=== PATIENT | female | born 1990 | race Caucasian/White ===

== ENCOUNTER → 2018-03-03 | Outpatient (CLI) | payer OTHER ==
--- NOTE | 2018-03-03 13:33 | US ---
EXAMINATION TYPE: US pelvis complete transvag DATE OF EXAM: 03/03/2018 COMPARISON: NONE CLINICAL HISTORY: R10.2 Pelvic pain. Pelvic pain for 1 year and irregular menses. 4 prior c-sections TECHNIQUE: Transvaginal (TV) and Transabdominal (TA) . Transabdominal sonographic images of the pel vis were acquired. Transvaginal sonographic images were medically necessary to better assess the fol lowing anatomy: endometrium Date of LMP: 02/27/18 EXAM MEASUREMENTS: Uterus: 11.4 x 3.7 x 5.6 cm Endometrial Stripe: 0.5 cm Right Ovary: 2.8 x 1.5 x 1.6 cm Left Ovary: 2.6 x 1.8 x 2.4 cm 1. Uterus: Anteverted 2. Endometrium: complex fluid collection within 3. Right Ovary: follicles noted 4. Left Ovary: follicles noted 5. Bilateral Adnexa: wnl 6. Posterior cul-de-sac: wnl IMPRESSION: Endometrial fluid is present. Consider follow-up.
== END | disposition home or self-care (01) ==
LOC: RADUSWWP 10:31
PROVIDERS: ATTEND Obstetrics & Gynecology
DX: R10.2 Pelvic and perineal pain (principal)
CPT/HCPCS: 76830; 76856

== ENCOUNTER → 2018-04-08 | Outpatient (CLI) | payer OTHER ==
--- NOTE | 2018-04-08 10:52 | US ---
EXAMINATION TYPE: US pelvis complete transvag DATE OF EXAM: 04/08/2018 COMPARISON: US CLINICAL HISTORY: N85.9 Endometrial Fluid. TECHNIQUE: Transvaginal (TV) and Transabdominal (TA) . Transabdominal sonographic images of the pel vis were acquired. Transvaginal sonographic images were medically necessary to better assess the fol lowing anatomy: Date of LMP: 03/23/18 EXAM MEASUREMENTS: Uterus: 11.0 x 4.4 x 5.9 cm Endometrial Stripe: 0.6 cm , 2mm of fluid centrally Right Ovary: 3.0 x 1.7 x 2.2 cm Left Ovary: 2.6 x 1.8 x 1.9 cm Patient unable to completely fill or empty her bladder making exam technically difficult. 1. Uterus: Anteverted. A questionable lesion is seen of the anterior mid body of the uterus measurin g 1.6 x 1.5 x 1.7cm 2. Endometrium: there does appear to be a small amount of slightly complex fluid in endometrium, lik anna blood products. 3. Right Ovary: wnl 4. Left Ovary: wnl 5. Bilateral Adnexa: wnl 6. Posterior cul-de-sac: wnl IMPRESSION: 1. Improved degree of endometrial fluid in comparison the prior of 03/03/2018, now trace measuring 2 m m in thickness 2. Heterogeneity of the anterior myometrium within the mid body of the uterus raises suspicion for a 1.7 cm exophytic uterine leiomyoma.
== END | disposition home or self-care (01) ==
LOC: RADUSWWP 09:04
PROVIDERS: ATTEND Obstetrics & Gynecology
DX: D25.9 Leiomyoma of uterus, unspecified (principal)
CPT/HCPCS: 76830; 76856

== ENCOUNTER 2018-05-12 06:37 | Day surgery (SDC) | payer OTHER ==
[2018-05-08 17:24] VITALS: BMI 29.4
[~2018-05-12 06:37] MED LIST: Pre Op ABX Message 1 EACH MISC MISCELLANE ONE
[2018-05-12] MEDS ORDERED: ONDANSETRON 4 MG/2 ML VIAL IVP ONE (06:52)
[2018-05-12] MEDS ORDERED: DEXAMETHASONE SOD PHOSPHATE 10 MG/ML 1 ML VIAL IV ONE (06:52)
[2018-05-12] MEDS ORDERED: LIDOCAINE 1% 20 ML VIAL (10MG/ML) FOR IV START INTRADERMA PRN (06:52)
[2018-05-12] MEDS ORDERED: fentaNYL (PF) 50 MCG/ML 2 ML AMP IV PRN (06:52)
[2018-05-12] MEDS ORDERED: MIDAZOLAM (PF) 2 MG/2 ML VIAL IV PRN (06:52)
[2018-05-12] MEDS: LACTATED RINGERS 1,000 ML IV SCH ×2 (07:32→07:45)
[2018-05-12] MEDS ORDERED: SCOPOLAMINE 1.5MG/72HR PATCH TRANSDERM ONE (07:41)
[2018-05-12] MEDS ORDERED: KETOROLAC 30 MG/ML 1 ML VIAL ONE (07:43)
[2018-05-12] MEDS ORDERED: PROPOFOL 10 MG/ML 20 ML VIAL IV ONE (07:43)
[2018-05-12] MEDS ORDERED: MIDAZOLAM 2 MG/2 ML VIAL ONE (07:43)
[2018-05-12] MEDS ORDERED: LIDOCAINE 1% INJ 10MG/ML (20 ML MDV) ONE (07:43)
[2018-05-12] MEDS ORDERED: fentaNYL (PF) 50 MCG/ML 2 ML AMP ONE (07:43)
[2018-05-12 08:31] VITALS: TEMP 97.3
[2018-05-12 08:32] VITALS: RESP 16
--- NOTE | 2018-05-12 08:41 | P.OP ---
Date of Procedure: 05/12/18 Preoperative Diagnosis: Menorrhagia complex fluid collection in the endometrium Postoperative Diagnosis: Same Procedure(s) Performed: D&C with hysteroscopy Anesthesia: RHODA Surgeon: Stuart Grajeda Estimated Blood Loss (ml): 5 Pathology: other (Uterine curettings) Condition: stable Disposition: same day Operative Findings: Tissue pathology pending Description of Procedure: Patient was taken to the operating suite where general anesthetic was found be adequate. She was prepped and draped in the normal sterile fashion placed in the dorsal lithotomy position. Initially a weighted speculum was inserted the vagina and the anterior lip of the cervix was grasped with an Allis clamp. Cervix was then dilated camera was inserted. No fluid collection was visualized. Sharp curettings of endometrium were obtained all tissues collected placed on Telfa sent to pathology for evaluation. Once this was accomplished all incidents removed, sponge, lap, needle counts were all correct 2. Patient was then taken to the recovery room in stable and satisfactory condition. Plan - Discharge Summary Discharge Rx Participant: Yes New Discharge Prescriptions: No Action Ibuprofen [Motrin Ib] 200 - 400 mg PO Q6H PRN PRN Reason: Pain Acetaminophen [Tylenol] 325 mg PO Q4H Discharge Medication List Ibuprofen [Motrin Ib] 200 - 400 mg PO Q6H PRN 05/08/18 [History] Acetaminophen [Tylenol] 325 mg PO Q4H 05/12/18 [History]
[2018-05-12] MEDS ORDERED: LACTATED RINGERS 1,000 ML IV ONE (08:46)
[2018-05-12 10:34] VITALS: BP 97/61; PULSE 72
--- NOTE | 2018-05-24 12:43 | P.HPOB ---
History of Present Illness H&P Date: 05/24/18 Chief Complaint: Menorrhagia Patient is a 27-year-old female with menorrhagia and questionable fluid collection in the endometrium on ultrasound. Symptoms have been going on for several months and she is beginning to get very concerned about the symptoms. She is scheduled for D&C with hysteroscopy to rule out other pathology. Risks/ benefits/alternatives to this procedure were discussed with the patient in detail and all questions were answered for her prior to proceeding to the operating room. Past Medical History Additional Past Medical History / Comment(s): RT ANKLE PAIN OCC D/T OLD INJURY. PELVIC PAIN ON/OFF, FLUID BEHIND UTERUS, LONG MENSES. RT VARICOSE VEIN. History of Any Multi-Drug Resistant Organisms: None Reported Past Surgical History: Adenoidectomy, Section, Ear Surgery Additional Past Surgical History / Comment(s): C-S X4. BMT. Past Anesthesia/Blood Transfusion Reactions: No Reported Reaction, Motion Sickness Smoking Status: Former smoker - Past Family History Mother Family Medical History: Cancer Additional Family Medical History / Comment(s): UTERINE Medications and Allergies Home Medications Medication Instructions Recorded Confirmed Type Ibuprofen [Motrin Ib] 200 - 400 mg PO Q6H PRN 05/08/18 05/12/18 History Acetaminophen [Tylenol] 325 mg PO Q4H 05/12/18 05/12/18 History Ibuprofen [Motrin] 600 mg PO Q6HR PRN #30 tab 05/12/18 Rx Allergies Allergy/AdvReac Type Severity Reaction Status Date / Time zolpidem [From Ambien] AdvReac "BLACK OUT" Verified 05/12/18 07:06 Exam Osteopathic Statement: *. No significant issues noted on an osteopathic structural exam other than those noted in the History and Physical/Consult. - OBG Physical Exam Breast: both: normal (no masses) Abdomen: bowel sounds normal, no diffuse tenderness, no bruit present, no guarding noted, no hepatomegaly, no splenomegaly, no mass Vulva: both: normal Vagina: normal moisture, no discharge Cervix: no lesion, no discharge Uterus: normal size, normal contour Adnexa: both: normal Anus/Rectum: normal perianal skin, no rectal mass, no hemorrhoids, heme negative
== END 2018-05-12 10:58 | disposition home or self-care (01) ==
LOC: OR 06:37
PROVIDERS: ATTEND Obstetrics & Gynecology
DX: N92.0 Excessive and frequent menstruation with regular cycle (principal); Z87.891 Personal history of nicotine dependence; Z79.899 Other long term (current) drug therapy; Z88.8 Allergy status to other drugs, medicaments and biological substances; Z80.49 Family history of malignant neoplasm of other genital organs
CPT/HCPCS: 58558; 88305; J2250; J1100; J2405; J2001; J3010; J1885; J2704

== ENCOUNTER → 2018-06-11 | Outpatient (CLI) | payer OTHER ==
--- NOTE | 2018-06-11 09:59 | US ---
EXAMINATION TYPE: US abdomen complete DATE OF EXAM: 06/11/2018 COMPARISON: NONE CLINICAL HISTORY: R10.9 abdominal pain. EXAM MEASUREMENTS: Liver Length: 13.0 cm Gallbladder Wall: 0.2 cm CBD: 0.2 cm Spleen: 9.7 cm Right Kidney: 10.7 x 4.5 x 3.2 cm Left Kidney: 11.1 x 4.2 x 3.8 cm Pancreas: wnl Liver: wnl Gallbladder: wnl Evidence for sonographic Llanos's sign: No CBD: wnl Spleen: wnl Right Kidney: wnl Left Kidney: wnl Upper IVC: wnl Abd Aorta: wnl The visualized liver is homogenous. The intrahepatic portion of the IVC and visualized abdominal aor ta are within normal limits. There is no evidence of cholelithiasis. Common bile duct is unremarkab le. The visualized portions of the pancreas are homogenous. The spleen is unremarkable. Kidneys ar e symmetric and free of hydronephrosis. No renal lesions are seen. IMPRESSION: No suspicious finding identified to account for patient's symptoms of pain.
== END ==
LOC: RADUSWWP 09:10
PROVIDERS: ATTEND Internal Medicine Geriatric Medicine
DX: R10.9 Unspecified abdominal pain (principal)
CPT/HCPCS: 76700

== ENCOUNTER → 2018-07-04 | Outpatient (CLI) | payer OTHER ==
--- NOTE | 2018-07-04 15:26 | NM ---
EXAMINATION TYPE: NM hepatobiliary w EF DATE OF EXAM: 07/04/2018 COMPARISON: NONE INDICATION: Abdomen pain TECHNIQUE: After the intravenous administration of 5.14 mCi Tc 99m Mebrofenin hepatobiliary scintigra phy is performed. Images were obtained immediately post injection. FINDINGS: There is prompt uptake and excretion of radiotracer by the liver. Extrahepatic ducts are identified at 8 minutes. The gallbladder is visualized within 10 minutes. Small bowel activity is noted within 12 minutes. At one hour 8 ounces of oral ensure plus is given to mimic CCK and gallbladder ejection fraction is c alculated at 58 %, which is in the normal range. (Normal >35% and <80%.). IMPRESSION: 1. Normal hepatobiliary scan
== END | disposition home or self-care (01) ==
LOC: RADNMMAIN 08:57
PROVIDERS: ATTEND Nurse Practitioner Family
DX: R10.9 Unspecified abdominal pain (principal)
CPT/HCPCS: 78226; A9537

== ENCOUNTER → 2019-03-16 | Outpatient (CLI) | payer OTHER ==
--- NOTE | 2019-03-16 12:09 | US ---
EXAMINATION TYPE: US pelvic complete DATE OF EXAM: 03/16/2019 COMPARISON: 04/08/2018 CLINICAL HISTORY: R10.2 PELVIC PAIN. TECHNIQUE: Transabdominal (TA). Date of LMP: 03/06/19 EXAM MEASUREMENTS: Uterus: 11.6 x 3.8 x 5.1 cm Endometrial Stripe: 0.3 cm Right Ovary: 3.3 x 2.3 x 1.2 cm Left Ovary: 2.4 x 1.9 x 1.8 cm 1. Uterus: Anteverted, probable fibroid again visualized measuring 2.2 x 1.9 x 2.1cm. This is locate d in the anterior body and may be submucosal or intramural and exophytic. 2. Endometrium: wnl 3. Right Ovary: wnl 4. Left Ovary: wnl 5. Bilateral Adnexa: wnl 6. Posterior cul-de-sac: wnl IMPRESSION: Redemonstration of probable submucosal or intramural and exophytic anterior uterine mid b violetta leiomyoma.
== END | disposition home or self-care (01) ==
LOC: RADUSWWP 10:03
PROVIDERS: ATTEND Obstetrics & Gynecology
DX: R10.2 Pelvic and perineal pain (principal)
CPT/HCPCS: 76856

== ENCOUNTER → 2019-04-06 | Outpatient (CLI) | payer OTHER ==
--- NOTE | 2019-04-06 09:53 | US ---
EXAMINATION TYPE: US abdomen complete DATE OF EXAM: 04/06/2019 COMPARISON: Abdominal ultrasound dated 06/11/2018 CLINICAL HISTORY: R10.84 Generalized Abdominal pain. ongoing abd pain for years EXAM MEASUREMENTS: Liver Length: 14.6 cm Gallbladder Wall: 0.3 cm CBD: 0.4 cm Spleen: 10.0 cm Right Kidney: 10.4 x 4.6 x 3.6 cm Left Kidney: 11.6 x 4.5 x 5.3 cm Pancreas: wnl Liver: wnl Gallbladder: wnl Evidence for sonographic Llanos's sign: no CBD: wnl Spleen: wnl Right Kidney: wnl Left Kidney: wnl Upper IVC: wnl Abd Aorta: wnl The liver is homogenous. The intrahepatic portion of the IVC and proximal abdominal aorta are within normal limits. There is no evidence of cholelithiasis. Common bile duct is unremarkable. The visu alized portions of the pancreas are homogenous. The spleen is unremarkable. Kidneys are symmetric a nd free of hydronephrosis. No renal lesions are seen. IMPRESSION: Unremarkable abdominal ultrasound. No sonographic evidence of cholelithiasis nor acute ch olecystitis. No hydronephrosis or nephrolithiasis.
== END | disposition home or self-care (01) ==
LOC: RADUSWWP 08:40
PROVIDERS: ATTEND Obstetrics & Gynecology
DX: R10.84 Generalized abdominal pain (principal); Z88.8 Allergy status to other drugs, medicaments and biological substances
CPT/HCPCS: 76700

== ENCOUNTER → 2020-06-12 | Outpatient (CLI) | payer OTHER ==
--- NOTE | 2020-06-12 09:57 | MM ---
Reason for exam: clinical finding. Baseline mammogram. History: Family history of breast cancer in mother and breast cancer in maternal grandmother. Taking hormonal contraceptives for 1 year beginning at age 28. Indicated problem(s): lump or thickening in the right breast. Physical Findings: Nurse did not find any significant physical abnormalities on exam. MG 3D Diag Mammo W/Cad KEY Bilateral CC and MLO view(s) were taken. The breast tissue is heterogeneously dense. This may lower the sensitivity of mammography. Central asymmetric density right CC view disperses on spot 3D. Punctate regional calcifications posteriorly on the left are typically benign. These results were verbally communicated with the patient and result sheet given to the patient on 06/12/20. ASSESSMENT: Incomplete: need additional imaging evaluation, BI-RAD 0 RECOMMENDATION: Ultrasound of the right breast.
--- NOTE | 2020-06-12 10:00 | USB ---
Reason for exam: additional evaluation requested from abnormal screening. History: Family history of breast cancer in mother and breast cancer in maternal grandmother. Taking hormonal contraceptives for 1 year beginning at age 28. US Breast Limited RT Right limited breast ultrasound including focal area of concern, retroareolar and axilla demonstrates no cystic or solid lesion seen. 9-12 o'clock scanned. These results were verbally communicated with the patient and result sheet given to the patient on 06/12/20. ASSESSMENT: Benign, BI-RAD 2 RECOMMENDATION: Routine screening mammogram of both breasts at age 38. (unless clinical indication to start sooner) Manage on a clinical basis with regard to any suspicious palpable and breast pain.
== END ==
LOC: RADMAMWWP 06:59
PROVIDERS: ATTEND Internal Medicine
DX: R92.1 Mammographic calcification found on diagnostic imaging of breast (principal); R92.2 Inconclusive mammogram; Z80.3 Family history of malignant neoplasm of breast
CPT/HCPCS: 77066; 76642; G0279; 77062

== ENCOUNTER 2020-10-30 15:20 | Emergency (ER) | payer OTHER ==
[2020-10-30] MEDS ORDERED: methylPREDNISolone SOD SUCCI 125 MG/2 ML VIAL IM ONE (16:38)
[2020-10-30] MEDS ORDERED: diphenhydrAMINE 50 MG CAP PO STA (16:38)
--- NOTE | 2020-10-30 16:45 | ED ---
Skin/Abscess/FB HPI - General Chief complaint: Skin/Abscess/Foreign Body Stated complaint: Rash Time Seen by Provider: 10/30/20 16:17 Source: patient Mode of arrival: ambulatory Limitations: no limitations - History of Present Illness Initial comments: Patient is a 29-year-old female presenting to the emergency Department with complaints of a rash on her bilateral legs that started yesterday. She noticed small hives appearing on her leg yesterday and then has steadily progressed and today. She has hives covering the anterior and posterior aspect of her bilateral upper legs as well as a few spots on her torso and back. She is unsure of what caused this, she denies any new soaps or detergents. She denies any new medications. She denies any chest pain or shortness of breath, no trouble breathing, no swelling anywhere. She did not take any medicines for this. She has no further complaints. Her vitals are stable upon arrival. - Related Data Home Medications Medication Instructions Recorded Confirmed Ibuprofen [Motrin Ib] 200 - 400 mg PO Q6H PRN 05/08/18 05/12/18 Acetaminophen [Tylenol] 325 mg PO Q4H 05/12/18 05/12/18 Previous Rx's Medication Instructions Recorded Ibuprofen [Motrin] 600 mg PO Q6HR PRN #30 tab 05/12/18 predniSONE 50 mg PO DAILY #5 tab 10/30/20 Allergies Allergy/AdvReac Type Severity Reaction Status Date / Time zolpidem [From Ambien] AdvReac "BLACK OUT" Verified 10/30/20 15:39 Review of Systems ROS Statement: Those systems with pertinent positive or pertinent negative responses have been documented in the HPI. ROS Other: All systems not noted in ROS Statement are negative. Past Medical History Additional Past Medical History / Comment(s): RT ANKLE PAIN OCC D/T OLD INJURY. PELVIC PAIN ON/OFF, FLUID BEHIND UTERUS, LONG MENSES. RT VARICOSE VEIN. History of Any Multi-Drug Resistant Organisms: None Reported Past Surgical History: Adenoidectomy, Section, Ear Surgery Additional Past Surgical History / Comment(s): C-S X4. BMT. Past Anesthesia/Blood Transfusion Reactions: No Reported Reaction, Motion Sickness Past Psychological History: Anxiety, Depression Smoking Status: Never smoker Past Alcohol Use History: Occasional Past Drug Use History: None Reported - Past Family History Mother Family Medical History: Cancer Additional Family Medical History / Comment(s): UTERINE General Exam - General Exam Comments Initial Comments: GENERAL: Patient is well-developed and well-nourished. Patient is nontoxic and in no acute distress. HEAD: Atraumatic, normocephalic. EYES: Pupils equal round and reactive to light, extraocular movements intact, sclera anicteric, conjunctiva are normal. Eyelids were unremarkable. ENT: Nares patent, oropharynx clear without exudates. Moist mucous membranes. NECK: Normal range of motion, supple without lymphadenopathy or JVD. LUNGS: Unlabored respirations. Breath sounds clear to auscultation bilaterally and equal. No wheezes rales or rhonchi. HEART: Regular rate and rhythm without murmurs, rubs or gallops. ABDOMEN: Soft, nontender, normoactive bowel sounds. MUSCULOSKELETAL: Normal extremities with adequate strength and normal range of motion, no pitting or edema. No clubbing or cyanosis. NEUROLOGICAL: Patient is alert and oriented x 3. SKIN: Warm, Dry, normal turgor. Patient has hives on her anterior and posterior bilateral upper thighs as well as a few spots on her abdomen and lower back. This is pruritic in nature, consistent with an ALLERGIC rash. Limitations: no limitations Course Vital Signs 10/30/20 15:39 Temperature 98.1 F Pulse Rate 102 H Respiratory 16 Rate Blood Pressure 124/84 O2 Sat by Pulse 96 Oximetry Medical Decision Making - Medical Decision Making Patient is a 29-year-old female here with an ALLERGIC rash on her bilateral upper legs, torso. No difficulty in breathing, her vitals are stable. She will be given a shot of steroids here today, she has a half hour drive home so I gave her a tablet of Benadryl take when she gets home. She will continue on steroids starting tomorrow. She can follow up with her PCP. Return parameters were discussed with her and she verbalized understanding. Case discussed with Dr. Mitchell. Disposition Clinical Impression: Rash due to allergy, Hives Disposition: HOME SELF-CARE Condition: Stable Instructions (If sedation given, give patient instructions): Urticaria (ED) Additional Instructions: Please return to the Emergency Department if symptoms worsen or any other concerns. Take oral steroids as prescribed, starting tomorrow. May take up to 50 mg of Benadryl every 8 hours for itching. Follow-up with your family doctor as needed. Prescriptions: predniSONE 50 mg PO DAILY #5 tab Is patient prescribed a controlled substance at d/c from ED?: No Referrals: Galina Collins MD [Primary Care Provider] - 1-2 days Time of Disposition: 16:45
[2020-10-30 17:02] VITALS: BP 112/79; PULSE 84; RESP 18; TEMP 97.9
== END 2020-10-30 16:59 | disposition home or self-care (01) ==
LOC: EC 15:20
DX: L50.0 Allergic urticaria (principal); Z79.1 Long term (current) use of non-steroidal anti-inflammatories (NSAID); Z79.52 Long term (current) use of systemic steroids; Z88.8 Allergy status to other drugs, medicaments and biological substances
CPT/HCPCS: 96372; 99282; J2930

== ENCOUNTER 2021-01-23 13:11 | Emergency (ER) | payer OTHER ==
[2021-01-23 13:27] VITALS: BP 109/73; PULSE 71; RESP 16; TEMP 98.6
--- NOTE | 2021-01-23 14:25 | ED ---
URI HPI - General Chief Complaint: Upper Respiratory Infection Stated Complaint: sorethroat, cough, headache Time Seen by Provider: 01/23/21 13:54 Source: patient, RN notes reviewed Mode of arrival: ambulatory Limitations: no limitations - History of Present Illness Initial Comments: This a 30-year-old female presents emergency Department with chief complaint of cough congestion sore throat. Patient states symptoms started last 4 days. Patient states her daughter has some her symptoms. No reported fever. Mild headache no chest pain no nausea vomiting diarrhea constipation no sick contacts. Patient has had prior COVID-19 infection. - Related Data Home Medications Medication Instructions Recorded Confirmed Ibuprofen [Motrin Ib] 200 - 400 mg PO Q6H PRN 05/08/18 05/12/18 Acetaminophen [Tylenol] 325 mg PO Q4H 05/12/18 05/12/18 Previous Rx's Medication Instructions Recorded Ibuprofen [Motrin] 600 mg PO Q6HR PRN #30 tab 05/12/18 predniSONE 50 mg PO DAILY #5 tab 10/30/20 Allergies Allergy/AdvReac Type Severity Reaction Status Date / Time zolpidem [From Ambien] AdvReac "BLACK OUT" Verified 10/30/20 15:39 Review of Systems ROS Statement: Those systems with pertinent positive or pertinent negative responses have been documented in the HPI. ROS Other: All systems not noted in ROS Statement are negative. Past Medical History Additional Past Medical History / Comment(s): RT ANKLE PAIN OCC D/T OLD INJURY. PELVIC PAIN ON/OFF, FLUID BEHIND UTERUS, LONG MENSES. RT VARICOSE VEIN. History of Any Multi-Drug Resistant Organisms: None Reported Past Surgical History: Adenoidectomy, Section, Ear Surgery Additional Past Surgical History / Comment(s): C-S X4. BMT. Past Anesthesia/Blood Transfusion Reactions: No Reported Reaction, Motion Sickness Past Psychological History: Anxiety, Depression Smoking Status: Never smoker Past Alcohol Use History: Occasional Past Drug Use History: None Reported - Past Family History Mother Family Medical History: Cancer Additional Family Medical History / Comment(s): UTERINE General Exam Limitations: no limitations General appearance: alert, in no apparent distress Head exam: Present: atraumatic, normocephalic, normal inspection Eye exam: Present: normal appearance, PERRL, EOMI. Absent: scleral icterus, conjunctival injection, periorbital swelling ENT exam: Present: normal exam, normal oropharynx, mucous membranes moist Neck exam: Present: normal inspection, full ROM. Absent: tenderness, meningismus, lymphadenopathy Respiratory exam: Present: normal lung sounds bilaterally. Absent: respiratory distress, wheezes, rales, rhonchi, stridor Cardiovascular Exam: Present: regular rate, normal rhythm, normal heart sounds. Absent: systolic murmur, diastolic murmur, rubs, gallop, clicks Course Vital Signs 01/23/21 13:24 Temperature 98.6 F Pulse Rate 71 Respiratory 16 Rate Blood Pressure 109/73 O2 Sat by Pulse 98 Oximetry Medical Decision Making - Medical Decision Making Patient's COVID-19 test and chest x-ray unremarkable. Patient has a viral upper respiratory infection. Return parameters discussed. - Lab Data Lab Results 01/23/21 Range/Units 13:31 Coronavirus (PCR) Not Detected (Not Detectd) Disposition Clinical Impression: Acute upper respiratory infection Disposition: HOME SELF-CARE Condition: Stable Instructions (If sedation given, give patient instructions): Upper Respiratory Infection (ED) Additional Instructions: Please return to the Emergency Department if symptoms worsen or any other concerns. Is patient prescribed a controlled substance at d/c from ED?: No Referrals: Galina Collins MD [Primary Care Provider] - 1-2 days Time of Disposition: 14:53
--- NOTE | 2021-01-23 14:43 | XR ---
EXAMINATION TYPE: XR chest 2V DATE OF EXAM: 01/23/2021 COMPARISON: NONE HISTORY: Cough and sore throat. TECHNIQUE: Frontal and lateral views of the chest are obtained. FINDINGS: There is no focal air space opacity, pleural effusion, or pneumothorax seen. The cardiac silhouette size is within normal limits. The osseous structures are intact. IMPRESSION: No acute pulmonary process.
== END 2021-01-23 15:13 | disposition home or self-care (01) ==
LOC: EC 13:11
DX: J06.9 Acute upper respiratory infection, unspecified (principal); F41.9 Anxiety disorder, unspecified; F32.9 Major depressive disorder, single episode, unspecified; Z20.822 Contact with and (suspected) exposure to COVID-19; Z90.89 Acquired absence of other organs
CPT/HCPCS: 71046; 87635; 99284

== ENCOUNTER 2022-05-09 22:45 | Outpatient (CLI) | payer OTHER ==
[2022-05-09 23:52] VITALS: BP 113/65; PULSE 106; RESP 17; TEMP 96.4
--- NOTE | 2022-06-03 10:16 | P.MSEPDOC ---
Presenting Problems - Arrival Data Date of Arrival on Unit: 05/09/22 Time of Arrival on Unit: 22:45 Mode of Transport: Ambulatory - Complaint OB-Reason for Admission/Chief Complaint: Decreased Movement Medical History - Information : 5 Para: 4 Term: 4 : 0 Abortions: Spontaneous or Elective: 0 Number of Living Children: 4 - Gestational Age Gestational Age by MORIS (wks/days): 32 Weeks and 4 Days - History Complications: Multiple , Prior Review of Systems - Review of Systems Constitutional: No problems Breast: No problems ENT: No problems Cardiovascular: No problems Respiratory: No problems Gastrointestinal: No problems Genitourinary: No problems Musculoskeletal: No problems Neurological: No problems Skin: No problems Vital Signs - Temperature Temperature: 96.4 F Temperature Source: Temporal Artery Scan - Pulse Right Brachial Pulse Rate: 106 Pulse Assessment Method: Automatic Cuff - Respirations Respiratory Rate: 17 Oxygen Delivery Method: Room Air O2 Sat by Pulse Oximetry: 99 - Blood Pressure Right Arm Blood Pressure: 113/65 Blood Pressure Mean: 81 Blood Pressure Source: Automatic Cuff Medical Screen Scoring - Uterine Contractions Frequency From (mins): 14 Frequency To (mins): 14 Duration From (seconds): 50 Duration To (seconds): 70 Intensity: Mild Resting: Soft to palpation - Assessment - Baby A Baseline FHR: 13 Heart Rate - NICHD Category: Category I (Normal) NST: Reactive - Assessment - Baby B Baseline FHR: 130 Heart Rate - NICHD Category: Category I (Normal) NST: Reactive Physician Notification - Physician Notified Physician Notified Date: 05/09/22 Physician Notified Time: 23:29 Physician: Verona Clarke New Order Received: Yes - Notification Comment Comment: Dr. Clarke given report on pt. Pt c/o. Pt is receiving care out of [facility] in [place]. Twin gestation. Reactive NST for twin A and B. 2 contractions noted on monitor 14 minutes apart. Pt has bilateral swelling in lower extremeties that her is monitoring. Pt has next apt on 05/13. Orders received to d/c pt to home. Maternal Triage Index - Urgent/Priority 2 Urgent Priority 2: Yes Provider Notified: Verona Clarke Provider Notified Time: 23:29 Criteria Met for Priority 2: Decreased movement. Disposition - Disposition OB Disposition: Discharge to home Discharge Date: 05/09/22 Discharge Time: 23:40 I agree with the RN Medical Screening Exam: Yes Physician's MSE Comment: I have neither seen nor examined the patient Case reviewed; plan agreed upon as documented in EMR&OBIX.: Yes Diagnosis: RELATED CONDITIONS, UNSPECIFIED, THIRD TRIMESTER
== END 2022-05-09 23:40 | disposition home or self-care (01) ==
LOC: FBPOP 22:45
PROVIDERS: ATTEND Obstetrics & Gynecology
DX: O26.93 Pregnancy related conditions, unspecified, third trimester (principal); Z3A.32 32 weeks gestation of pregnancy; Z88.8 Allergy status to other drugs, medicaments and biological substances; Z87.891 Personal history of nicotine dependence
CPT/HCPCS: 59025; G0463; 99213

== ENCOUNTER → 2023-09-17 | Outpatient (CLI) | payer OTHER ==
[2023-09-17 08:57] VITALS: BP 125/83; PULSE 79; RESP 16
--- NOTE | 2023-09-17 14:46 | P.PAINPG ---
PQRS Measure Charge Sheet Comment: HISTORY OF PRESENT ILLNESS: A 32 yr old female as a referral from Dr Fair presents today w severe and chronic head and neck pain secondary to occipital neuralgia, cervicogenic SMITH for evaluation. Pt states pain level is provoked at 6 /10 in intensity, constant, localized in the upper cervical spine, predominantly axial, stabbing in character w occasional shooting pain towards the top of the head. Pain is provoked by lifting. Pain is alleviated by PT x 6 wks in 2020, chiropractic treatments semi monthly since May 2023 which she is currently in, heat, repositioning and rest . PMH: OA, MDD/ Anxiety PSH: Adenoidectomy, Section x4, Ear Surgery SH: Never smoker, Occasional ETOH use, No illicit drug use FH: Mo- Uterine CA All: See list Meds: See list REVIEW OF ORGAN SYSTEMS: CONSTITUTIONAL: No fevers or chills. No recent weight loss. NEUROLOGICAL: + numbness and tingling along the distal extremities. No seizure disorders or headaches. MUSCULOSKELETAL: + pain PSYCHIATRIC: Denies current depression or suicidal thoughts. Physical Examinations : Constitutional : Cooperative , not in acute distress . Neurologic : Cranial nerve II to XII intact. No focal neurological deficits. Psychiatric : alert & oriented x 3. Matching mood & appropriate affect. Judgment & insight intact. Musculoskeletal : Cervical Spine +BL YULISA TTP Motor strength in the deltoid and biceps: Normal right side. Normal Left side Motor strength biceps and the wrist ext ensors: Normal right side . Normal left side Motor strength in the triceps muscle: Normal right side. Normal left side Deep tendon reflexes: Normal at the biceps. Normal at Brachioradialis. Normal at triceps Vertebral body tenderness to deep palpation over Cervical facet loading test: positive bilaterally Spurling test: positive bilaterally Neck distraction test: positive bilaterally Piper sign: positive bilaterally Lumbar spine Motor strength lower extremities ,thigh and legs 5/5 Right side , 5/5 Left side Deep tendon reflexes : Normal Knee Jerk. Normal Ankle Jerk Vertebral body tenderness over Posada Test positive Lumbar facet Loading Test: positive Right / positive Left Range of motion of the lumbar spine Flexion 30 degrees, extension 10 degrees Straight Leg Raise test: Left/ Right positive at degrees Nabeel test: positive right / positive left. Severe tenderness over the Sacroiliac joint on the Right / Left sides Gaenslen test: positive bilaterally Seated flexion test: positive bilaterally. Sacral spine : Severe tenderness over the Sacroiliac joint: right side / left side Range of motion: Flexion of the lumbar spine <60 degrees Range of motion: Extension of the lumbar spine <20 degrees Gaenslen's Test positive Nabeel test: positive right side / left side Thigh Thrust Test Sacral Thrust Test Imaging: CT non contrast of head from 09/25/21 reviewed Assessment/ Plan : Occipital neuralgia, Cervicogenic SMITH Recommendation of BL YULISA injections #1. May need a series of injections for optimal pain relief. Risks, benefits of procedure discussed and patient verbalized understanding. Admits to anti- coagulant use or medical history of diabetes. Protocol for discontinuation/ continuation of medications jorge a procedure discussed. All questions answered. I have spent greater than 30 minutes on patient care today. Dr Caraballo was available by phone for the evaluation of this patient. The time was used to review the medical records including relevant urine studies and Prescription history (MAPs), review of the available imaging, evaluation and examination of the patient, coordination of care with the medical staff and if applicable referring physicians, as well as creation of the medical record PQRS Narrative: Smoking Status Former smoker Home Medications: Ambulatory Orders Vit No.179/Iron/Folic [ Tablet] 1 each PO 05/09/22 Controlled Substance Measures - Controlled Substance Measures Is patient prescribed a controlled substance at discharge?: No
== END ==
LOC: PNWHC3 07:55
PROVIDERS: ATTEND Specialist
DX: M54.81 Occipital neuralgia (principal); G44.86 Cervicogenic headache; Z87.891 Personal history of nicotine dependence; Z88.8 Allergy status to other drugs, medicaments and biological substances
CPT/HCPCS: 99211

== ENCOUNTER 2023-10-07 13:00 | Day surgery (SDC) | payer OTHER ==
[~2023-10-07 13:00] MED LIST changes: +LACTATED RINGERS 1,000 ML IV SCH; -Pre Op ABX Message 1 EACH MISC MISCELLANE ONE
[2023-10-07 13:27] VITALS: TEMP 97.5
[2023-10-07] MEDS ORDERED: ROPIVACAINE 5MG/ML 20ML VIAL ONE (14:03)
[2023-10-07] MEDS ORDERED: fentaNYL (PF) 50 MCG/ML 2 ML AMP ONE (14:03)
[2023-10-07] MEDS ORDERED: methylPREDNISolone ACETATE 40 MG/ML 1 ML VIAL ONE (14:03)
[2023-10-07] MEDS ORDERED: MIDAZOLAM 2 MG/2 ML VIAL ONE (14:03)
--- NOTE | 2023-10-07 14:10 | P.PCN ---
Date of Procedure: 10/07/23 Procedure(s) Performed: Preoperative diagnoses= 1- Greater occipital neuralgia. 2-cervicogenic headache Postoperative diagnoses= 1-greater occipital neuralgia. 2-cervicogenic headache Procedure= Bilateral Greater occipital nerve block Anesthesia= moderate sedation with Versed 2 mg and fentanyl 50 micrograms Sedation start time :1403 . Sedation end time : 1407 . Estimated blood loss=minimal. Procedure indication= the patient had a history of severe chronic neck pain ,and headache, diagnosed with occipital neuralgia exam was positive for severe tenderness over the occipital nerve bilaterally, she will be a good candidate occipital nerve block, patient failed conservative management Procedure description= the patient was seen and identified in the preoperative holding area, risks and benefits and alternative of the procedure and possible complications discussed with the patient, and he agreed with the preceding, patient signed the consent, an IV was started, and vital signs were monitored and were stable throughout the procedure, patient was placed in the sitting position or table and the neck area was prepped and draped with a sterile fashion, vital signs were closely monitored during the procedure, 25-gauge needle advanced 1 inch lateral to the occipital protuberance on the right side, at the location of the right occipital nerve , then after negative aspiration for heme and CSF and there was no paresthesia during the injection, 6 ml of Robivacaine 0.5% and 20 mg of Depo-Medrol injected after negative aspiration, the needle removed, and the entire same procedure was repeated for the left Greater occipital nerve. Patient tolerated the procedure well without any complication, The patient returned to supine position after the back was cleaned and a Band- Aid applied, the patient transported to recovery room in stable condition and he was monitored for 30 minutes before he was discharged home and then patient was reexamined before going home and patient was discharged in stable condition and patient will follow up with the pain clinic in a few weeks.
[2023-10-07] MEDS: IV FLUID CONTINUATION 1,000 ML IV ONE (14:12)
[2023-10-07 14:33] VITALS: BP 118/72; PULSE 88; RESP 18
== END 2023-10-07 14:39 | disposition home or self-care (01) ==
LOC: ORPAIN 13:00
PROVIDERS: ATTEND Specialist
DX: M54.81 Occipital neuralgia (principal); G44.86 Cervicogenic headache; G89.29 Other chronic pain
CPT/HCPCS: 81025; 64405; J2250; J3010; J2795; J1010

== ENCOUNTER → 2023-10-22 | Outpatient (CLI) | payer OTHER ==
[2023-10-22 08:53] VITALS: BP 118/76; PULSE 77; RESP 16; TEMP 97.3
--- NOTE | 2023-10-22 14:07 | P.PAINPG ---
PQRS Measure Charge Sheet Comment: HISTORY OF PRESENT ILLNESS: A 32 yr old female presents today w severe and chronic head and neck pain secondary to occipital neuralgia, cervicogenic SMITH for evaluation s/p BL YULISA injections #1. Pt states she experienced 80 % pain relief x 2 wks s/p procedure. Pt states pain level is provoked at 5 /10 in intensity, constant, localized on the top of head, predominantly axial, stabbing in character without shooting pain . Pain is provoked by lifting. Pain is alleviated by PT x 6 wks in 2020, chiropractic treatments semi monthly since May 2023 which she is currently in, heat, repositioning and rest . Pt also admits to having cats as pets even though she has a diagnosed cat fur allergy. Interventional procedures include BL YULISA x1 Medications include Topamax REVIEW OF ORGAN SYSTEMS: CONSTITUTIONAL: No fevers or chills. No recent weight loss. NEUROLOGICAL: + numbness and tingling along the distal extremities. No seizure disorders or headaches. MUSCULOSKELETAL: + pain PSYCHIATRIC: Denies current depression or suicidal thoughts. Physical Examinations : Constitutional : Cooperative , not in acute distress . Neurologic : Cranial nerve II to XII intact. No focal neurological deficits. Psychiatric : alert & oriented x 3. Matching mood & appropriate affect. Judgment & insight intact. Musculoskeletal : Cervical Spine +BL YULISA TTP Motor strength in the deltoid and biceps: Normal right side. Normal Left side Motor strength biceps and the wrist extensors: Normal right side . Normal left side Motor strength in the triceps muscle: Normal right side. Normal left side Deep tendon reflexes: Normal at the biceps. Normal at Brachioradialis. Normal at triceps Vertebral body tenderness to deep palpation over Cervical facet loading test: positive bilaterally Spurling test: positive bilaterally Neck distraction test: positive bilaterally Piper sign: positive bilaterally Lumbar spine Motor strength lower extremities ,thigh and legs 5/5 Right side , 5/5 Left side Deep tendon reflexes : Normal Knee Jerk. Normal Ankle Jerk Vertebral body tenderness over Posada Test positive Lumbar facet Loading Test: positive Right / positive Left Range of motion of the lumbar spine Flexion 30 degrees, extension 10 degrees Straight Leg Raise test: Left/ Right positive at degrees Nabeel test: positive right / positive left. Severe tenderness over the Sacroiliac joint on the Right / Left sides Gaenslen test: positive bilaterally Seated flexion test: positive bilaterally. Sacral spine : Severe tenderness over the Sacroiliac joint: right side / left side Range of motion: Flexion of the lumbar spine <60 degrees Range of motion: Extension of the lumbar spine <20 degrees Gaenslen's Test positive Nabeel test: positive right side / left side Thigh Thrust Test Sacral Thrust Test Imaging: CT non contrast of head from 09/25/21 reviewed Assessment/ Plan : Occipital neuralgia, Cervicogenic SMITH, Indoor/ Seasonal Allergies Recommendation of PT x 6 wks M54.12. All questions answered. I have spent greater than 30 minutes on patient care today. Dr Caraballo was available by phone for the evaluation of this patient. The time was used to review the medical records including relevant urine studies and Prescription history (MAPs), review of the available imaging, evaluation and examination of the patient, coordination of care with the medical staff and if applicable referring physicians, as well as creation of the medical record PQRS Narrative: Smoking Status Former smoker Hx Alcohol Use (MH) No Home Medications: Ambulatory Orders Albuterol Inhaler [Ventolin Hfa Inhaler] 1 - 2 puff INHALATION Q6H PRN 10/03/23 Topiramate [Topamax] 25 mg PO QAM 10/03/23 Controlled Substance Measures - Controlled Substance Measures Is patient prescribed a controlled substance at discharge?: No
== END ==
LOC: PNWHC3 08:19
PROVIDERS: ATTEND Specialist
DX: M54.81 Occipital neuralgia (principal); G44.86 Cervicogenic headache; J30.2 Other seasonal allergic rhinitis; Z88.8 Allergy status to other drugs, medicaments and biological substances; Z87.891 Personal history of nicotine dependence
CPT/HCPCS: 99211